=== PATIENT | female | born 1970 | race Two or more races ===

== ENCOUNTER 2020-02-21 22:18 | Emergency (ER) | payer SELFPAY ==
[2020-02-21] MEDS ORDERED: Ibuprofen 600 MG Tab PO ONE (23:11)
[2020-02-21] MEDS ORDERED: traMADol 50 MG Tab PO ONE (23:11)
--- NOTE | 2020-02-21 23:16 | EDM.PDOC ---
ED HPI GENERAL MEDICAL PROBLEM - General Chief Complaint: ENT Problem Stated Complaint: TOOTH ACHE Time Seen by Provider: 02/21/20 22:46 - History of Present Illness INITIAL COMMENTS - FREE TEXT/NARRATIVE: HISTORY AND PHYSICAL: History of present illness: This is a 49-year-old female with history significant for hypertension and diabetes who presents to the ER today complaining of pain to her right upper molar. Patient reports that she saw her dentist 3 days ago when she was prescribed amoxicillin. Patient reports that she has an appointment in 10 days to see her dentist again. Patient presents the ER today secondary to persistent pain to her right upper molar that has not really resolved with the antibiotic that she was prescribed. Patient denies any recent fevers, shakes, chills, nausea, vomiting, diarrhea, dysuria, frequency, urgency, chest pain, shortness of breath. Patient denies any pain with swallowing or ear pain. Patient denies any swelling to her face. Review of systems: As per history of present illness and below otherwise all systems reviewed and negative. Past medical history: As per history of present illness and as reviewed below otherwise noncontributory. Surgical history: As per history of present illness and as reviewed below otherwise noncontributory. Social history: No reported history of drug or alcohol abuse. Family history: As per history of present illness and as reviewed below otherwise noncontributory. Physical exam: Constitutional: Patient is oriented to person, place, and time. Appears well- developed and well-nourished. No distress. HEENT: Moist mucous membranes Head: Normocephalic and atraumatic Eyes: Right eye exhibits no discharge. Left eye exhibits no discharge. No scleral icterus Neck: Normal range of motion. No tracheal deviation present. Cardiovascular: Normal rate and regular rhythm. Pulmonary: Effort normal, no respiratory distress. Abdominal: No distention Musculoskeletal: Normal range of motion Neurologic: Alert and oriented to person, place and time. Skin: [place], warm and dry. Psychiatric: Normal mood and affect. Behavior is normal. Judgment and thought content normal. Nursing note and vital signs have been reviewed Patient's ER physical exam is significant for tenderness to palpation to her right upper molar with obvious dental caries in that tooth. Patient has no trismus, no change in voice, no airway compromise. Assessment and plan: 49-year-old female who presents ER today secondary to dental pain. Patient has seen her dentist and has prescribed amoxicillin but still having significant discomfort. Patient be given a dose of Ultram and ibuprofen here in the ED and will be prescribed ibuprofen and Ultram to take at home along with her amoxicillin that was prescribed for her by her dentist. Reassessment at the time of disposition demonstrates that the patient is in no acute distress. The patient has remained stable throughout the entire ED visit and is without objective evidence for acute process requiring urgent intervention or hospitalization. The patient is stable for discharge, counseling is provided as documented above, discussed symptomatic treatment and specific conditions for return. I have spoken with the patient/caregive and discussed todays findings, in addition to providing specific details for the plan of care. Questions are answered and there is agreement with the plan. Definitive disposition and diagnosis as appropriate pending reevaluation and review of above. - Related Data Allergies Allergy/AdvReac Type Severity Reaction Status Date / Time No Known Allergies Allergy Verified 02/21/20 23:11 Home Meds: Home Meds Amoxicillin 500 mg PO TID 02/21/20 [History] Ibuprofen 600 mg PO Q6HR PRN #30 tablet 02/21/20 [Rx] atenoloL [Atenolol] 25 mg PO DAILY 02/21/20 [History] metFORMIN [Glucophage] 1,000 mg PO BIDMEALS 02/21/20 [History] traMADol [Ultram] 50 mg PO Q6H PRN #12 tab 02/21/20 [Rx] ED ROS GENERAL - Review of Systems Review Of Systems: See Below ED EXAM, GENERAL - Physical Exam Exam: See Below Course - Vital Signs Last Recorded V/S: Last Vital Signs Temp 97.1 F 02/21/20 23:05 Pulse 80 02/21/20 23:05 Resp 18 02/21/20 23:05 BP 137/60 02/21/20 23:05 Pulse Ox 98 02/21/20 23:05 - Orders/Labs/Meds Meds: Medications Discontinued Medications Generic Name Dose Route Start Last Admin Trade Name Freq PRN Reason Stop Dose Admin Ibuprofen 600 mg 02/21/20 23:11 Motrin PO 02/21/20 23:12 ONETIME ONE Tramadol HCl 50 mg 02/21/20 23:11 Ultram PO 02/21/20 23:12 ONETIME ONE Departure - Departure Time of Disposition: 23:14 Disposition: Home, Self-Care 01 Condition: Good Clinical Impression: Dental caries extending into dentin - Discharge Information Prescriptions: Ibuprofen 600 mg PO Q6HR PRN #30 tablet PRN Reason: Pain traMADol [Ultram] 50 mg PO Q6H PRN #12 tab PRN Reason: Pain Instructions: Dental Abscess Referrals: PCP,None [Primary Care Provider] - Forms: ED Department Discharge Additional Instructions: You have been prescribed ibuprofen and Ultram to assist you with pain. Continue all your other medications including the amoxicillin Follow-up with your dentist as scheduled The following information is given to patients seen in the emergency department who are being discharged to home. This information is to outline your options for follow-up care. We provide all patients seen in our emergency department with a follow-up referral. The need for follow-up, as well as the timing and circumstances, are variable depending upon the specifics of your emergency department visit. If you don't have a primary care physician on staff, we will provide you with a referral. We always advise you to contact your personal physician following an emergency department visit to inform them of the circumstance of the visit and for follow-up with them and/or the need for any referrals to a consulting specialist. The emergency department will also refer you to a specialist when appropriate. This referral assures that you have the opportunity for follow-up care with a specialist. All of these measure are taken in an effort to provide you with optimal care, which includes your follow-up. Under all circumstances we always encourage you to contact your private physician who remains a resource for coordinating your care. When calling for follow-up care, please make the office aware that this follow-up is from your recent emergency room visit. If for any reason you are refused follow-up, please contact the [facility] Emergency Department at and asked to speak to the emergency department charge nurse. Sepsis Event Note (ED) - Focused Exam Vital Signs: Vital Signs Temp Pulse Resp BP Pulse Ox 02/21/20 23:05 97.1 F 80 18 137/60 98
== END 2020-02-21 23:35 | disposition home or self-care (01) ==
LOC: MW.ED 22:18
DX: K02.9 Dental caries, unspecified (principal)
CPT/HCPCS: 99282; A9270

== ENCOUNTER 2020-12-05 02:43 | Emergency (ER) | payer SELFPAY ==
[2020-12-05] MEDS ORDERED: Metoclopramide 10 MG/2 ML SDV IVPUSH ONE (03:00)
[2020-12-05] MEDS ORDERED: diphenhydrAMINE 50 MG/ML SDV IVPUSH ONE (03:00)
[2020-12-05] MEDS ORDERED: Sodium Chloride 0.9% 2.5 ML Syringe FLUSH PRN (03:00)
[2020-12-05] MEDS ORDERED: Sodium Chloride 0.9% 1,000 ML IV ONE (03:00)
[2020-12-05] MEDS ORDERED: Sodium Chloride 0.9% 10 ML Syringe FLUSH PRN (03:00)
--- NOTE | 2020-12-05 03:00 | EDM.PDOC ---
ED HPI GENERAL MEDICAL PROBLEM - General Chief Complaint: Headache Stated Complaint: SEVERE HEADACHE Time Seen by Provider: 12/05/20 02:44 Source of Information: Reports: Patient History Limitations: Reports: No Limitations - History of Present Illness INITIAL COMMENTS - FREE TEXT/NARRATIVE: 49-year-old female past medical history [id number] diabetes presents for headache x3 weeks. Patient has been trying Tylenol at home with minimal relief. The headache is primarily in her posterior left head and neck radiating to her left moravian. It is associated with a numbness and tingling sensation of bilateral upper extremities. No associated muscle weakness, slurred speech, confusion. Not thunderclap onset. Waxing and waning over 3 weeks. Associated with nausea but no vomiting. Light makes it worse. Left Neck Pain Score (Numeric/FACES): 8 - Related Data Allergies Allergy/AdvReac Type Severity Reaction Status Date / Time No Known Allergies Allergy Verified 12/05/20 02:49 Home Meds: Home Meds Amoxicillin 500 mg PO TID 02/21/20 [History] Ibuprofen 600 mg PO Q6HR PRN #30 tablet 02/21/20 [Rx] atenoloL [Atenolol] 25 mg PO DAILY 02/21/20 [History] metFORMIN [Glucophage] 1,000 mg PO BIDMEALS 02/21/20 [History] traMADol [Ultram] 50 mg PO Q6H PRN #12 tab 02/21/20 [Rx] Acetaminophen/Butalbital/Caff [Fioricet 325-50-40 MG] 1 each PO Q4H PRN #20 tab 12/05/20 [Rx] Past Medical History HEENT History: Reports: None Cardiovascular History: Reports: Hypertension Respiratory History: Reports: None Gastrointestinal History: Reports: None Genitourinary History: Reports: None STRU[employer]URAL [employer] WORKER History: Reports: None Musculoskeletal History: Reports: None Neurological History: Reports: None Psychiatric History: Reports: None Endocrine/Metabolic History: Reports: Diabetes, Type II Insulin Pump Model and Hyperbaric Technician: None Hematologic History: Reports: None Immunologic History: Reports: None Oncologic (Cancer) History: Reports: None Dermatologic History: Reports: None - Infectious Disease History Infectious Disease History: Reports: None - Past Surgical History Head Surgeries/Procedures: Reports: None Social & Family History - Family History Family Medical History: No Pertinent Family History - Caffeine Use Caffeine Use: Reports: None ED ROS GENERAL - Review of Systems Review Of Systems: Comprehensive ROS is negative, except as noted in HPI. ED EXAM, GENERAL - Physical Exam Exam: See Below Exam Limited By: No Limitations General Appearance: Alert, WD/WN, No Apparent Distress Eye Exam: Bilateral Eye: EOMI, PERRL Ears: Hearing Grossly Normal Nose: Normal Inspection Throat/Mouth: Normal Voice, No Airway Compromise Head: Atraumatic, Normocephalic Neck: Normal Inspection, Supple, Non-Tender Respiratory/Chest: No Respiratory Distress, Lungs Clear, Normal Breath Sounds, No Accessory Muscle Use Cardiovascular: Normal Peripheral Pulses, Regular Rate, Rhythm Extremities: Normal Inspection Neurological: Alert, Oriented, CN II-XII Intact, Normal Cognition, Normal Gait, No Motor/Sensory Deficits Psychiatric: Normal Affect, Normal Mood Skin Exam: Warm, Dry, Intact, Normal Color Course - Vital Signs Last Recorded V/S: Last Vital Signs Temp 97.8 F 12/05/20 03:03 Pulse 95 12/05/20 03:43 Resp 98 H 12/05/20 03:43 BP 142/76 H 12/05/20 03:43 Pulse Ox 96 12/05/20 03:43 - Orders/Labs/Meds Orders: Active Orders 24 hr Category Date Time Status Sodium Chloride 0.9% [Saline Flush] Med 12/05/20 03:00 Active 10 ml FLUSH ASDIRECTED PRN Sodium Chloride 0.9% [Saline Flush] Med 12/05/20 03:00 Active 2.5 ml FLUSH ASDIRECTED PRN Saline Lock Insert [OM.PC] Stat Oth 12/05/20 03:00 Ordered Medication Orders Sodium Chloride (Sodium Chloride 0.9% 10 Ml Syringe) 10 ml FLUSH ASDIRECTED PRN PRN Reason: Keep Vein Open Last Admin: 12/05/20 03:27 Dose: 10 ml Documented by: BOWEN Sodium Chloride (Sodium Chloride 0.9% 2.5 Ml Syringe) 2.5 ml FLUSH ASDIRECTED PRN PRN Reason: Keep Vein Open Last Admin: 12/05/20 03:27 Dose: 2.5 ml Documented by: BOWEN Labs: Laboratory Tests 12/05/20 12/05/20 Range/Units 03:25 03:25 WBC 6.38 (4.0-11.0) K/uL RBC 4.44 (4.30-5.90) M/uL Hgb 13.6 (12.0-16.0) g/dL Hct 40.1 (36.0-46.0) % MCV 90.3 (80.0-98.0) fL MCH 30.6 (27.0-32.0) pg MCHC 33.9 (31.0-37.0) g/dL RDW Std Deviation 46.8 (28.0-62.0) fl RDW Coeff of Nickie 14 (11.0-15.0) % Plt Count 220 (150-400) K/uL MPV 10.30 (7.40-12.00) fL Neut % (Auto) 40.0 L (48.0-80.0) % Lymph % (Auto) 53.0 H (16.0-40.0) % [place] % (Auto) 5.6 (0.0-15.0) % Eos % (Auto) 1.1 (0.0-7.0) % Baso % (Auto) 0.3 (0.0-1.5) % Neut # (Auto) 2.6 (1.4-5.7) K/uL Lymph # (Auto) 3.4 H (0.6-2.4) K/uL [place] # (Auto) 0.4 (0.0-0.8) K/uL Eos # (Auto) 0.1 (0.0-0.7) K/uL Baso # (Auto) 0.0 (0.0-0.1) K/uL Nucleated RBC % 0.0 /100WBC Nucleated RBCs # 0 K/uL Sodium 142 (136-145) mmol/L Potassium 4.0 (3.5-5.1) mmol/L Chloride 105 (98-107) mmol/L Carbon Dioxide 29.6 (21.0-32.0) mmol/L BUN 15 (7.0-18.0) mg/dL Creatinine 0.6 (0.6-1.0) mg/dL Est Cr Clr Drug Dosing 100.94 mL/min Estimated GFR (MDRD) > 60.0 ml/min Glucose 136 H (74-106) mg/dL Calcium 8.5 (8.5-10.1) mg/dL Magnesium 1.8 (1.8-2.4) mg/dL Total Bilirubin 0.3 (0.2-1.0) mg/dL AST 15 (15-37) IU/L ALT 22 (14-63) IU/L Alkaline Phosphatase 60 (46-116) U/L Total Protein 7.4 (6.4-8.2) g/dL Albumin 3.6 (3.4-5.0) g/dL Globulin 3.8 (2.6-4.0) g/dL Albumin/Globulin Ratio 0.9 (0.9-1.6) Meds: Medications Generic Name Dose Route Start Last Admin Trade Name Freq PRN Reason Stop Dose Admin Sodium Chloride 10 ml 12/05/20 03:00 12/05/20 03:27 Sodium Chloride 0.9% 10 Ml Syringe FLUSH 10 ml ASDIRECTED PRN Administration Keep Vein Open Sodium Chloride 2.5 ml 12/05/20 03:00 12/05/20 03:27 Sodium Chloride 0.9% 2.5 Ml Syringe FLUSH 2.5 ml ASDIRECTED PRN Administration Keep Vein Open Discontinued Medications Generic Name Dose Route Start Last Admin Trade Name Freq PRN Reason Stop Dose Admin Acetaminophen/Butalbital/Caffeine 1 tab 12/05/20 03:01 12/05/20 03:28 Acetaminophen/Butalbital/Caffeine 325-50-40 Mg Tab PO 12/05/20 03:02 1 tab ONETIME ONE Administration Diphenhydramine HCl 50 mg 12/05/20 03:00 12/05/20 03:28 Diphenhydramine 50 Mg/Ml Sdv IVPUSH 12/05/20 03:01 50 mg ONETIME ONE Administration Sodium Chloride 1,000 mls @ 999 mls/hr 12/05/20 03:00 12/05/20 03:27 Normal Saline IV 12/05/20 04:00 999 mls/hr .Bolus ONE Administration Ketorolac Tromethamine 15 mg 12/05/20 03:48 12/05/20 03:53 Ketorolac 30 Mg/Ml Sdv IVPUSH 12/05/20 03:49 15 mg ONETIME ONE Administration Metoclopramide HCl 10 mg 12/05/20 03:00 12/05/20 03:28 Metoclopramide 10 Mg/2 Ml Sdv IVPUSH 12/05/20 03:01 10 mg ONETIME ONE Administration - Re-Assessments/Exams Free Text/Narrative Re-Assessment/Exam: 12/05/20 03:06 We will get basic labs. Will get head CT to ensure no gross pathology. Will treat symptomatically while working up. 12/05/20 04:31 Patient notes that headache is much improved. Labs are unremarkable. Head CT is unremarkable. Will discharge with short course of Fioricet and recommend patient follow-up with her primary care physician for further work-up of headache. Return precautions were discussed at length. Departure - Departure Time of Disposition: 04:31 Disposition: Home, Self-Care 01 Condition: Good Clinical Impression: Headache Qualifiers: Headache type: unspecified Headache chronicity pattern: acute headache Intractability: not intractable Qualified Code(s): R51.9 - Headache, unspecified - Discharge Information Prescriptions: Acetaminophen/Butalbital/Caff [Fioricet 325-50-40 MG] 1 each PO Q4H PRN #20 tab PRN Reason: Headache Instructions: General Headache Without Cause Referrals: PCP,None [Primary Care Provider] - Forms: ED Department Discharge Additional Instructions: Your labs and head CT were unremarkable. You should follow-up with your primary care physician for further work-up of your headaches. I did send a prescription called Fioricet to your pharmacy which can help when you are having a headache. It is not something that you have to take every day but rather you can take when you are experiencing a headache. It is safe to take with Motrin or ibuprofen. The following information is given to patients seen in the emergency department who are being discharged to home. This information is to outline your options for follow-up care. We provide all patients seen in our emergency department with a follow-up referral. The need for follow-up, as well as the timing and circumstances, are variable depending upon the specifics of your emergency department visit. If you don't have a primary care physician on staff, we will provide you with a referral. We always advise you to contact your personal physician following an emergency department visit to inform them of the circumstance of the visit and for follow-up with them and/or the need for any referrals to a consulting specialist. The emergency department will also refer you to a specialist when appropriate. This referral assures that you have the opportunity for follow-up care with a specialist. All of these measure are taken in an effort to provide you with optimal care, which includes your follow-up. Under all circumstances we always encourage you to contact your private physician who remains a resource for coordinating your care. When calling for fo llow-up care, please make the office aware that this follow-up is from your recent emergency room visit. If for any reason you are refused follow-up, please contact the [facility] Emergency Department at and asked to speak to the emergency department charge nurse. Please follow up with your primary care physician. If you do not have a primary care physician, see below: [facility] [address] [place] [address] [facility] [address] [place] [address] [facility] [address] [place] [address] Sepsis Event Note (ED) - Focused Exam Vital Signs: Vital Signs Temp Pulse Resp BP Pulse Ox 12/05/20 03:43 95 98 H 142/76 H 96 12/05/20 03:03 97.8 F 65 17 136/72 96 - My Orders Last 24 Hours: My Active Orders 12/05/20 03:00 Sodium Chloride 0.9% [Saline Flush] 10 ml FLUSH ASDIRECTED PRN Sodium Chloride 0.9% [Saline Flush] 2.5 ml FLUSH ASDIRECTED PRN Saline Lock Insert [OM.PC] Stat - Assessment/Plan Last 24 Hours: My Active Orders 12/05/20 03:00 Sodium Chloride 0.9% [Saline Flush] 10 ml FLUSH ASDIRECTED PRN Sodium Chloride 0.9% [Saline Flush] 2.5 ml FLUSH ASDIRECTED PRN Saline Lock Insert [OM.PC] Stat
[2020-12-05] MEDS ORDERED: Acetaminophen/Butalbital/Caffeine 325-50-40 MG Tab PO ONE (03:01)
[2020-12-05] MEDS ORDERED: Ketorolac 30 MG/ML SDV IVPUSH ONE (03:48)
[2020-12-05 04:07] LABS: BLOOD UREA NITROGEN,BUN 15 mg/dL (7.0-18.0); CARBON DIOXIDE,CO2 29.6 mmol/L (21.0-32.0); CHLORIDE,CL 105 mmol/L (98-107); GLUCOSE RANDOM 136 mg/dL (74-106); SODIUM,NA 142 mmol/L (136-145)
--- NOTE | 2020-12-05 04:28 | CT ---
INDICATION: Headache and dizziness COMPARISON: None available. TECHNIQUE: CT examination of the head was performed with 5 mm thick axial and 2 mm thick coronal and sagittal sections without intravenous contrast. Images were obtained from the vertex of the skull through the skull base, and I examined the images with the brain and bone windows. Please note that all CT scans at this facility use dose modulation, iterative reconstruction, and/or weight-based dosing when appropriate to reduce radiation dose to as low as reasonably achievable. FINDINGS: : The brain is normal in appearance for the patient`s age on today`s study, with no sign of mass lesion, mass effect, hemorrhage, or edema. The ventricles and sulci are normal in appearance for the patient`s age. Incidental note is made of a partially empty sella, a common finding in a patient of this age. The visualized portions of the orbits are normal in appearance. The visualized portions of the paranasal sinuses and mastoids are clear. The osseous structures are normal in their appearance with no sign of abnormality in the skull base or calvarium. IMPRESSION: Normal noncontrast CT of the head for the patient`s age. Nothing seen to correlate with history of headache. Please note that all CT scans at this facility use dose modulation, iterative reconstruction, and/or weight-based dosing when appropriate to reduce radiation dose to as low as reasonably achievable. Dictated by Mert Kat MD @ 12/05/2020 4:26:[address] Mert Kat @ Dec 05 2020 4:26AM
== END 2020-12-05 04:37 | disposition home or self-care (01) ==
LOC: MW.ED 02:43
DX: R51.9 Headache, unspecified (principal); I10 Essential (primary) hypertension; E11.9 Type 2 diabetes mellitus without complications; Z79.84 Long term (current) use of oral hypoglycemic drugs; Z79.899 Other long term (current) drug therapy
CPT/HCPCS: 36415; 70450; 80053; 83735; 85025; 96374; 96375; 99284; A9270; J1200; J1885; J2765; J7030; 99283

== ENCOUNTER 2024-10-01 22:22 | Emergency (ER) | payer OTHER ==
[2024-10-01 23:20] LABS: BASOPHILS ABSOLUTE AUTO 0.02 K/uL (0.00-0.20); BASOPHILS PERCENT AUTO 0.3 % (0.0-1.0); EOSINOPHILS ABSOLUTE AUTO 0.05 K/uL (0.00-0.45); EOSINOPHILS PERCENT AUTO 0.7 % (0.0-6.0); HEMOGLOBIN 13.2 g/dL (12.0-16.0); IMMATURE GRAN ABSOLUTE AUTO 0.02 K/uL (0.00-0.05); IMMATURE GRAN PERCENT AUTO 0.3 % (0.0-0.4); LYMPHOCYTES ABSOLUTE AUTO 2.98 K/uL (1.00-4.80); LYMPHOCYTES PERCENT AUTO 42.9 % (24.0-44.0); MEAN CORPUSCULAR HEMOGLOBIN 29.1 pg (28.0-32.0); MEAN CORPUSCULAR VOLUME 88.1 fL (83.0-99.0); MEAN PLATELET VOLUME 9.7 fL (9.4-12.3); MONOCYTES ABSOLUTE AUTO 0.49 K/uL (0.00-0.80); MONOCYTES PERCENT AUTO 7.1 % (0.0-8.0); NEUTROPHILS ABSOLUTE AUTO 3.38 K/uL (1.80-7.70); NEUTROPHILS PERCENT AUTO 48.7 % (41.0-71.0); PLATELET COUNT,PLT 218 K/uL (150-400); RED BLOOD CELL COUNT 4.54 M/uL (4.10-5.30); WHITE BLOOD CELL COUNT,WBC 6.94 K/uL (3.9-11.3)
[2024-10-01 23:47] LABS: A/G RATIO 1.1 (0.9-1.6); ALANINE AMINOTRANSFERASE,ALT 29 IU/L (14-63); ALBUMIN 3.8 g/dL (3.4-5.0); ALKALINE PHOSPHATASE 65 U/L (46-116); ASPARTATE AMNIOTRANSFERASE,AST 19 IU/L (15-37); BILIRUBIN TOTAL 0.3 mg/dL (0.2-1.0); BLOOD UREA NITROGEN,BUN 14 mg/dL (7.0-18.0); CALCIUM 8.5 mg/dL (8.5-10.1); CHLORIDE,CL 105 mmol/L (98-107); CREATININE 0.6 mg/dL (0.6-1.0); GLUCOSE RANDOM 110 mg/dL (74-106); LIPASE 58 U/L (16-77); MAGNESIUM 1.9 mg/dL (1.8-2.4); POTASSIUM,K 3.9 mmol/L (3.5-5.1); PROTEIN TOTAL,TP 7.4 g/dL (6.4-8.2); SODIUM,NA 142 mmol/L (136-145)
[2024-10-01 23:56] LABS: ESTIMATED GFR 107 mL/min (>60)
[2024-10-02] MEDS ORDERED: Sodium Chloride 0.9% 10 ML Syringe FLUSH PRN (02:38)
[2024-10-02] MEDS ORDERED: Sodium Chloride 0.9% 20 ML SDV IV PRN (02:38)
[2024-10-02] MEDS ORDERED: Sodium Chloride 0.9% 2.5 ML Syringe FLUSH PRN (02:38)
[2024-10-02 03:22] LABS: LACTIC ACID 1.6 mmol/L (0.4-2.0)
[2024-10-02 03:23] LABS: APPEARANCE,URINE SLT CLOUDY; BILIRUBIN,URINE NEGATIVE (NEGATIVE); COLOR,URINE YELLOW; GLUCOSE,URINE NEGATIVE (NEGATIVE); KETONES,URINE NEGATIVE (NEGATIVE); LEUKOCYTE ESTERASE,URINE SMALL (NEGATIVE); NITRITE,URINE NEGATIVE (NEGATIVE); OCCULT BLOOD,URINE TRACE-INTACT (NEGATIVE); PROTEIN,URINE NEGATIVE (NEGATIVE)
[2024-10-02 03:34] LABS: BACTERIA,URINE 1+ (NEGATIVE); EPITHELIAL CELLS,URINE FEW (NONE-FEW); WBC,URINE 35-40 (0-5/HPF)
[2024-10-02] MEDS: Iopamidol 755 MG/ML 500 ML Multipack Bottle IVPUSH ONE (03:38)
[2024-10-02] MEDS: cefTRIAXone 2 GM in Sodium Chloride 0.9% 100 ML IV ONE (04:32)
[2024-10-02] MEDS: cefTRIAXone 2 GM in Water For Injection, Sterile 20 ML IVPUSH ONE (04:33)
== END 2024-10-02 05:54 | disposition home or self-care (01) ==
LOC: MW.ED 22:22
DX: R10.12 Left upper quadrant pain (principal); N39.0 Urinary tract infection, site not specified; I10 Essential (primary) hypertension; E11.9 Type 2 diabetes mellitus without complications; Z79.899 Other long term (current) drug therapy; Z79.85 Long-term (current) use of injectable non-insulin antidiabetic drugs
CPT/HCPCS: 36415; 74177; 80053; 81001; 83605; 83690; 83735; 84484; 84703; 85025; 87086; 96374; 99284; J0696; Q9967

== ENCOUNTER 2025-02-05 21:45 | Emergency (ER) | payer OTHER ==
[2025-02-05 22:11] LABS: GLUCOSE,URINE NEGATIVE (NEGATIVE); OCCULT BLOOD,URINE LARGE (NEGATIVE)
[2025-02-05 22:21] LABS: APPEARANCE,URINE SLT CLOUDY; EPITHELIAL CELLS,URINE FEW (NONE-FEW)
== END 2025-02-05 23:44 | disposition home or self-care (01) ==
LOC: MW.ED 21:45
DX: N39.0 Urinary tract infection, site not specified (principal); I10 Essential (primary) hypertension; E11.9 Type 2 diabetes mellitus without complications; Z79.899 Other long term (current) drug therapy
CPT/HCPCS: 81001; 87086; 99283; A9270; 87088; 87186

== ENCOUNTER 2025-04-05 08:22 | Emergency (ER) | payer OTHER, MEDICAID ==
[2025-04-05] MEDS: Ketorolac 30 MG/ML SDV IVPUSH ONE (09:13)
[2025-04-05 09:24] LABS: BASOPHILS ABSOLUTE AUTO 0.03 K/uL (0.00-0.20); BASOPHILS PERCENT AUTO 0.6 % (0.0-1.0); EOSINOPHILS ABSOLUTE AUTO 0.05 K/uL (0.00-0.45); EOSINOPHILS PERCENT AUTO 1.0 % (0.0-6.0); IMMATURE GRAN ABSOLUTE AUTO 0.01 K/uL (0.00-0.05); IMMATURE GRAN PERCENT AUTO 0.2 % (0.0-0.4); LYMPHOCYTES ABSOLUTE AUTO 2.45 K/uL (1.00-4.80); LYMPHOCYTES PERCENT AUTO 50.3 % (24.0-44.0); MEAN PLATELET VOLUME 9.7 fL (9.4-12.3); MONOCYTES ABSOLUTE AUTO 0.30 K/uL (0.00-0.80); MONOCYTES PERCENT AUTO 6.2 % (0.0-8.0); NEUTROPHILS ABSOLUTE AUTO 2.03 K/uL (1.80-7.70); NEUTROPHILS PERCENT AUTO 41.7 % (41.0-71.0); NRBC ABSOLUTE 0.00 K/uL (0.00-0.02); NRBC PERCENT 0.0 /100WBC (0.0-0.2); PLATELET COUNT,PLT 215 K/uL (150-400); RED BLOOD CELL COUNT 4.54 M/uL (4.10-5.30); WHITE BLOOD CELL COUNT,WBC 4.87 K/uL (3.9-11.3)
[2025-04-05 09:25] LABS: APPEARANCE,URINE CLEAR; GLUCOSE,URINE NEGATIVE (NEGATIVE); OCCULT BLOOD,URINE SMALL (NEGATIVE)
[2025-04-05 09:36] LABS: EPITHELIAL CELLS,URINE FEW (NONE-FEW)
[2025-04-05 09:55] LABS: A/G RATIO 1.2 (0.9-1.6); ALANINE AMINOTRANSFERASE,ALT 18.0 IU/L (14-63); ASPARTATE AMNIOTRANSFERASE,AST 20.0 IU/L (15-37); BILIRUBIN TOTAL 0.5 mg/dL (0.2-1.0); BLOOD UREA NITROGEN,BUN 11.0 mg/dL (7.0-18.0); CARBON DIOXIDE,CO2 26.9 mmol/L (21.0-32.0); CHLORIDE,CL 105.0 mmol/L (98-107); CREATININE 0.4 mg/dL (0.6-1.0); EST CRCL DRUG DOSING (CG) 142.99 mL/min; GLUCOSE RANDOM 91.0 mg/dL (74-106); POTASSIUM,K 3.8 mmol/L (3.5-5.1); PROTEIN TOTAL,TP 7.8 g/dL (6.4-8.2); SODIUM,NA 142.0 mmol/L (136-145)
[2025-04-05 09:57] LABS: ESTIMATED GFR 117.0 mL/min (>60)
[2025-04-05] MEDS: Iopamidol 755 MG/ML 500 ML Multipack Bottle IVPUSH STA (10:33)
[2025-04-05 14:12] LABS: CANDIDA DNA PROBE NEGATIVE (NEGATIVE); GARDNERELLA DNA PROBE NEGATIVE (NEGATIVE); TRICHOMONAS DNA PROBE NEGATIVE (NEGATIVE)
== END 2025-04-05 15:47 | disposition home or self-care (01) ==
LOC: MW.ED 08:22
DX: R10.32 Left lower quadrant pain (principal); R10.A2 Flank pain, left side; I10 Essential (primary) hypertension; E11.9 Type 2 diabetes mellitus without complications; Z79.890 Hormone replacement therapy; Z79.899 Other long term (current) drug therapy
CPT/HCPCS: 36415; 74177; 80053; 81001; 81025; 85025; 87480; 87510; 87660; 96374; 99284; A9270; J1885; Q9967

== ENCOUNTER 2025-04-12 10:12 | Emergency (ER) | payer OTHER | END 2025-04-12 11:25 | disposition home or self-care (01) | LOC: MW.ED 10:12 | DX: B02.9 Zoster without complications (principal); I10 Essential (primary) hypertension; E11.9 Type 2 diabetes mellitus without complications; E03.9 Hypothyroidism, unspecified; Z79.85 Long-term (current) use of injectable non-insulin antidiabetic drugs; Z79.890 Hormone replacement therapy; Z79.899 Other long term (current) drug therapy | CPT/HCPCS: 99282; 99284 ==